=== PATIENT | female | born 1945 | race African-American/Black ===

== ENCOUNTER 2016-10-13 08:30 | Outpatient (RCR) | payer OTHER ==
[~2016-10-13 08:30] MED LIST: ASPIRIN325 MG ORAL; ATORVASTATIN CA40 MG ORAL; BENAZEPRIL HCL10 MG ORAL; CALCIUM 500 +1 EAC3 PO; GLIMEPIRIDE4 MG ORAL; HYDROCODONE-CHLO5 ML PO; KLOR-CON 88 MEQ ORAL; KLOR-CON M1010 ME1 PO; METFORMIN HCL1000 M1 ORAL; MULTI VITAMIN1 EACH ORAL; TRIAMTERENE-HC1 EAC6 ORAL; XANAX0.5 MG ORAL
== END 2016-10-28 | disposition home or self-care (01) ==
LOC: PTY 08:30
DX: S89.91XA Unspecified injury of right lower leg, initial encounter (principal); E11.9 Type 2 diabetes mellitus without complications; Z79.82 Long term (current) use of aspirin; E78.5 Hyperlipidemia, unspecified; I10 Essential (primary) hypertension; X58.XXXA Exposure to other specified factors, initial encounter; Y93.9 Activity, unspecified; Y92.9 Unspecified place or not applicable
CPT/HCPCS: 97035; 97110; 97140; 97162; G0283

== ENCOUNTER 2016-11-06 08:10 | Outpatient (RCR) | payer OTHER | END 2016-11-28 | disposition home or self-care (01) | LOC: PTY 08:10 | DX: S89.91XD Unspecified injury of right lower leg, subsequent encounter (principal); Z98.890 Other specified postprocedural states; Z96.651 Presence of right artificial knee joint | CPT/HCPCS: 97035; 97110; G0283 ==

== ENCOUNTER 2016-12-01 07:45 | Outpatient (RCR) | payer OTHER | END 2016-12-28 | disposition home or self-care (01) | LOC: PTY 07:45 | DX: S89.91XD Unspecified injury of right lower leg, subsequent encounter (principal); Z98.890 Other specified postprocedural states; Z96.651 Presence of right artificial knee joint | CPT/HCPCS: 97110; 97140; G0283 ==

== ENCOUNTER 2016-12-29 07:40 | Outpatient (RCR) | payer OTHER | END 2017-01-28 | disposition home or self-care (01) | LOC: PTY 07:40 | DX: S89.91XD Unspecified injury of right lower leg, subsequent encounter (principal); Z98.890 Other specified postprocedural states; Z96.651 Presence of right artificial knee joint | CPT/HCPCS: 97110; 97140; G0283 ==